=== PATIENT | male | born 1965 | race Caucasian/White ===

== ENCOUNTER 2023-11-18 15:12 | Emergency (ER) | payer BC ==
[~2023-11-18] VITALS: Ht 175.3 cm; Wt 91.1 kg
[2023-11-18] MEDS ORDERED: cyclopentolate 1% 2ml ophthalmic solution RIGHTEYE ONE (22:45)
[2023-11-19 00:32] VITALS: BP 135/86; PULSE 78; RESP 17; TEMP 98.2; O2SAT 99
== END 2023-11-19 00:34 | disposition home or self-care (01) ==
LOC: ER 15:13
DX: H53.9 Unspecified visual disturbance (principal); I10 Essential (primary) hypertension; E03.9 Hypothyroidism, unspecified
CPT/HCPCS: 99282; 99284